=== PATIENT | female | born 1950 | race Caucasian/White ===

== ENCOUNTER 2022-05-01 21:29 | Emergency (ER) | payer MEDICARE ==
[~2022-05-01] VITALS: Ht 154.9 cm; Wt 84.0 kg
[2022-05-01] MEDS ORDERED: acetaminophen 325mg tablet PO ONE (22:10)
[2022-05-01] MEDS ORDERED: AMLO2.5T4 PO (22:16)
[2022-05-01] MEDS ORDERED: METO-395 PO (22:16)
[2022-05-01] MEDS ORDERED: GLIM1TAB PO (22:16)
== END 2022-05-02 00:05 | disposition home or self-care (01) ==
LOC: ER 21:29
DX: M25.562 Pain in left knee (principal); M25.552 Pain in left hip; I10 Essential (primary) hypertension; R51.9 Headache, unspecified; Z79.899 Other long term (current) drug therapy; W19.XXXA Unspecified fall, initial encounter; Y93.89 Activity, other specified; Y92.89 Other specified places as the place of occurrence of the external cause; Y99.8 Other external cause status
CPT/HCPCS: 70450; 72125; 72192; 73502; 73564; 99284

== ENCOUNTER 2022-11-05 16:31 | Inpatient (IN) | payer MEDICARE, OTHER ==
[~2022-11-05] VITALS: Ht 154.9 cm; Wt 81.0 kg
[2022-11-05 17:35] LABS: BASOPHILS # (AUTO) 0.1 X10'3 (0-0.2); BASOPHILS % (AUTO) 0.4 % (0-1); EOSINOPHILS # (AUTO) 0.1 X10'3 (0-0.9); EOSINOPHILS % (AUTO) 0.4 % (0-6); HEMATOCRIT 45.1 % (35.0-45.0); HEMOGLOBIN 15.1 g/dl (12.0-16.0); LYMPHOCYTES % (AUTO) 12.1 % (21-51); MEAN CORPUSCULAR HEMOGLOBIN 30.9 PG (27.0-31.0); MEAN CORPUSCULAR HGB CONC 33.4 g/dL (33.0-36.5); MEAN CORPUSCULAR VOLUME 92.7 FL (78-98); MEAN PLATELET VOLUME 8.7 FL (7.4-10.4); MONOCYTES # (AUTO) 1.3 X10'3 (0-0.9); MONOCYTES % (AUTO) 7.8 % (2-12); NEUTROPHILS # (AUTO) 13.4 X10'3 (1.8-7.7); NEUTROPHILS % (AUTO) 79.3 % (42-75); PLATELET COUNT 291 X10'3 (140-440); RED BLOOD COUNT 4.87 X10'6 (4.20-5.60); RED CELL DISTRIBUTION WIDTH 13.7 % (11.5-14.5); WHITE BLOOD COUNT 16.9 X10'3 (4.5-11.0)
[2022-11-05 17:43] LABS: CLARITY,URINE CLEAR (Clear); COLOR,URINE YELLOW (Yellow); GLUCOSE, URINE NEGATIVE (Neg); KETONES,URINE NEGATIVE (Neg); LEUKOCYTE ESTERASE ,URINE SMALL (Neg); NITRITES, URINE NEGATIVE (Neg); OCCULT BLOOD,URINE SMALL (Neg); PROTEIN,URINE NEGATIVE (Neg); UROBILINOGEN,URINE 0.2 E.U/dL (0.2-1.0)
[2022-11-05 17:47] LABS: UA COLLECTION TYPE NON-SPECIFIED
[2022-11-05 17:50] LABS: ALANINE AMINOTRANSFERASE 28 U/L (12-78); ALBUMIN 4.1 G/DL (3.4-5.0); ALBUMIN/GLOBULIN RATIO 1.1 (1.1-1.5); ALKALINE PHOSPHATASE 84 IU/L (46-116); ANION GAP 10 (8-16); ASPARTATE AMINO TRANSFERASE 17 U/L (10-37); BILIRUBIN,TOTAL 0.6 MG/DL (0.1-1.0); BLOOD UREA NITROGEN 9 MG/DL (7-18); BUN/CREATININE RATIO 10.5 (10.0-20.0); CHLORIDE 102 MMOL/L (99-107); CREATININE 0.86 MG/DL (0.40-0.90); GLUCOSE 135 MG/DL (70-104); LIPASE 67 U/L (73-393); POTASSIUM 3.9 MMOL/L (3.5-5.1); SODIUM 137 MMOL/L (135-145); TOTAL CARBON DIOXIDE 24.7 MMOL/L (24-32); TOTAL PROTEIN 7.7 G/DL (6.4-8.2); eGFR 65 ML/MIN
[2022-11-05 18:17] LABS: MUCUS STRANDS FEW /LPF (Neg); SQUAMOUS EPITHELIAL CELL,UR MANY /LPF (FEW)
[2022-11-05 18:18] LABS: BACTERIA,URINE NONE SEEN /HPF (Neg); RBC,URINE 0-2 /HPF (0-2); TRANSITIONAL EPI CELLS,URINE FEW /HPF
[2022-11-05] MEDS ORDERED: morphine 4 MG/ML inj SYRINge IV ONE (18:25)
[2022-11-05] MEDS ORDERED: ondansetron/PF 4mg/2ml inj IV ONE (18:25)
[2022-11-05] MEDS ORDERED: normal saline 1000ml 1,000 ML IV ONE (18:25)
[2022-11-05] MEDS ORDERED: metroNIDAZOLE-Flagyl 500mg/NS 100 ML IV ONE (20:00)
[2022-11-05] MEDS ORDERED: CefTRIAXone/D5W-Rocephin 1gm 50 ML IV ONE (20:00)
[2022-11-05] MEDS ORDERED: temazepam 15mg capsule PO PRN (21:00)
[2022-11-05] MEDS ORDERED: HYDROmorphone inj. 0.5 MG/0.5 ML DISP.SYRIN IV ONE (21:55)
[2022-11-05] MEDS ORDERED: ondansetron/PF 4mg/2ml inj IV PRN (22:05)
[2022-11-05] MEDS ORDERED: diphenhydrAMINE 25mg capsule PO PRN (22:05)
[2022-11-05] MEDS ORDERED: HYDROmorphone inj. 0.5 MG/0.5 ML DISP.SYRIN IV PRN (22:05)
[2022-11-05] MEDS ORDERED: bisacodyl 10mg suppository rectal RC PRN (22:05)
[2022-11-05] MEDS ORDERED: acetaminophen 325mg tablet PO PRN ×2 (22:05)
[2022-11-05] MEDS ORDERED: magnesium hydroxide 30ml (MOM) UD suspension PO PRN (22:05)
[2022-11-05] MEDS ORDERED: morphine 2 MG/ML inj. syringe IV PRN (22:05)
[2022-11-05] MEDS ORDERED: HYDROcodone/acetaminophen 10/325mg tab PO PRN (22:05)
[2022-11-05] MEDS ORDERED: mag hydrox/Alum hydrox/simeth 30ml oral suspension PO PRN (22:05)
[2022-11-05] MEDS ORDERED: ondansetron 4mg rapidly disintigrating tab PO PRN (22:05)
[2022-11-05] MEDS ORDERED: diphenhydrAMINE 50 mg/ml inj IV PRN (22:05)
[2022-11-05] MEDS ORDERED: hydrALAZINE 20mg/ml inj. IV PRN (22:10)
[2022-11-05 22:35] LABS: PHOSPHORUS 4.1 MG/DL (2.3-4.5)
[2022-11-05 22:41] LABS: HEMOGLOBIN A1C 5.8 % (4.5-6.2)
[2022-11-05 22:53] LABS: APTT 26 SECONDS (22-32)
[2022-11-06] VITALS (31 sets, daily range): BP systolic 139–196; BP diastolic 70–92
[2022-11-06] MEDS: sodium chloride 0.45% 1,000 ML IV SCH ×4 (02:04→21:02)
[2022-11-06] MEDS: piperacillin/tazo 4.5gm/100ml 100 ML IV SCH ×3 (02:46→16:36)
[2022-11-06] MEDS: morphine 2 MG/ML inj. syringe IV PRN (02:51)
[2022-11-06 06:23] LABS: BASOPHILS % (AUTO) 0.4 % (0-1); EOSINOPHILS % (AUTO) 0.1 % (0-6); HEMATOCRIT 40.9 % (35.0-45.0); HEMOGLOBIN 13.8 g/dl (12.0-16.0); LYMPHOCYTES # (AUTO) 2.2 X10'3 (1.1-4.8); MEAN CORPUSCULAR HEMOGLOBIN 31.2 PG (27.0-31.0); MEAN CORPUSCULAR HGB CONC 33.7 g/dL (33.0-36.5); MEAN CORPUSCULAR VOLUME 92.6 FL (78-98); MEAN PLATELET VOLUME 8.7 FL (7.4-10.4); MONOCYTES # (AUTO) 1.2 X10'3 (0-0.9); MONOCYTES % (AUTO) 9.4 % (2-12); NEUTROPHILS # (AUTO) 9.3 X10'3 (1.8-7.7); NEUTROPHILS % (AUTO) 73.1 % (42-75); PLATELET COUNT 213 X10'3 (140-440); RED BLOOD COUNT 4.41 X10'6 (4.20-5.60); RED CELL DISTRIBUTION WIDTH 13.5 % (11.5-14.5); WHITE BLOOD COUNT 12.7 X10'3 (4.5-11.0)
[2022-11-06 06:28] LABS: ALANINE AMINOTRANSFERASE 80 U/L (12-78); ALBUMIN 3.5 G/DL (3.4-5.0); ALBUMIN/GLOBULIN RATIO 1.1 (1.1-1.5); ALKALINE PHOSPHATASE 103 IU/L (46-116); ANION GAP 8 (8-16); ASPARTATE AMINO TRANSFERASE 85 U/L (10-37); BILIRUBIN,TOTAL 0.8 MG/DL (0.1-1.0); BLOOD UREA NITROGEN 10 MG/DL (7-18); BUN/CREATININE RATIO 11.9 (10.0-20.0); CALCIUM 8.7 MG/DL (8.5-10.1); CHLORIDE 104 MMOL/L (99-107); CHOL/HDL RATIO 2.2 (0.00-4.99); CHOLESTEROL 189 MG/DL (0-200); CREATININE 0.84 MG/DL (0.40-0.90); GLUCOSE 124 MG/DL (70-104); HDL CHOLESTEROL 87 MG/DL (35-60); LDL CHOLESTEROL 94 MG/DL (50-100); POTASSIUM 3.9 MMOL/L (3.5-5.1); SODIUM 139 MMOL/L (135-145); TOTAL CARBON DIOXIDE 27.1 MMOL/L (24-32); TOTAL PROTEIN 6.7 G/DL (6.4-8.2); TRIGLYCERIDES 32 MG/DL (20-135); eGFR 67 ML/MIN
--- NOTE | 2022-11-06 06:46 | NUR ---
Problems reprioritized. Patient report given, questions answered & plan of care reviewed with LISA ALBERT.
[2022-11-06] MEDS ORDERED: BUPIVAcaine/PF 2.5 mg/ml (0.25%) 30ml vial ONE (07:13)
[2022-11-06] MEDS: docusate sod 100mg capsule PO SCH ×2 (08:00→21:01)
[2022-11-06] MEDS: pantoprazole 40mg IV 80 MG in normal saline 100ml IV soln 100 ML IV SCH (08:28)
[2022-11-06] MEDS ORDERED: METO100T14 PO (09:37)
[2022-11-06] MEDS ORDERED: ENAL-79 PO (09:37)
[2022-11-06] MEDS ORDERED: AMLO5TAB16 PO (09:37)
[2022-11-06] MEDS ORDERED: ondansetron/PF 4mg/2ml inj IV PRN (10:10)
[2022-11-06] MEDS ORDERED: meperidine/PF 25mg/ml syringe IV PRN ×2 (10:10)
[2022-11-06] MEDS ORDERED: ringers solution, lacted 1,000 ML IV SCH (10:10)
[2022-11-06] MEDS ORDERED: morphine 4 MG/ML inj SYRINge IV PRN (10:10)
[2022-11-06] MEDS ORDERED: proCHLORperazine 10 MG/2 ml inj IV PRN (10:10)
[2022-11-06] MEDS ORDERED: morphine 2 MG/ML inj. syringe IV PRN (10:10)
[2022-11-06] MEDS ORDERED: rocuronium 10mg/ml inj IV ONE (10:13)
[2022-11-06] MEDS ORDERED: fentaNYL/PF 50MCG/1 ML 2ML syringe ONE (10:13)
[2022-11-06] MEDS ORDERED: propofol inj 20 ML IV ONE (10:13)
[2022-11-06] MEDS ORDERED: midazolam 1 mg/ML 2ml injection ONE (10:13)
[2022-11-06] MEDS ORDERED: BUPIVAcaine 0.5% inj/PF 30 ml vial IJ ONE (10:47)
[2022-11-06] MEDS ORDERED: ondansetron/PF 4mg/2ml inj ONE (11:00)
[2022-11-06] MEDS ORDERED: dexamethasone sod phosphate 4mg/ml inj. ONE (11:00)
[2022-11-06] MEDS ORDERED: sugammadex 200mg/2ml injection IV ONE (11:01)
--- NOTE | 2022-11-06 11:15 | NUR ---
Received from OR via , accompanied by Anesthesiologist DR CADENA and report given by Anesthesiolgist. PT OPENS EYES TO VOICE, SKIN WARM AND PINK, PIV RIGHT WRIST 20G WITH LR 100. 4 LAP SITES WITH DERMABOND CD, NO C/O PAIN, SCD'S.
[2022-11-06] MEDS: meperidine/PF 25mg/ml syringe IV PRN ×2 (11:55→12:36)
--- NOTE | 2022-11-06 11:58 | NUR ---
PT IS EXPERIENCING HIGH BP WITH MODERATE PAIN. ATTEMPTING MEPERIDINE TO CONTROL PAIN AND REDUCE BP. WILL REASSES OUTCOME.
--- NOTE | 2022-11-06 12:53 | NUR ---
Report called to receiving nurse. Transferred via [facility] . Special Issues communicated to receiving nurse LISA ALBERT. PT IS AWAKE, ALERT, MOVES EXT X 4, PAIN TOLERABLE, BP LOWER AND OKAYED FOR TRANSFER BY DR BELLAMY, SCD'S, IV PATENT, LAP SITES CD, PT MEETS DISCHARGE CRITERA.
--- NOTE | 2022-11-06 13:15 | NUR ---
TRANSPORTED PT BACK TO [facility]. CARE TRANSFERRED TO LISA ALBERT.
--- NOTE | 2022-11-06 15:09 | NUR ---
PAGER ID: [phone] MESSAGE: Gunjan Martinez#[id number]'s BP 175/77 HR 50, RR17.Would you Like to do hydralazine OR just a 1x dose of her Enalapril 20mg and amlodipine 5mg po.since that is what she missed this am.Please advise. Thank you. Carly Perkisn [phone]
[2022-11-06] MEDS: HYDROcodone/acetaminophen 5mg/325mg tablet PO PRN (16:35)
--- NOTE | 2022-11-06 19:12 | NUR ---
Problems reprioritized. Patient report given, questions answered & plan of care reviewed with Prudence RN.
--- NOTE | 2022-11-06 19:22 | NUR ---
Patient in room [facility]. I have received report from LISA ALBERT and had the opportunity to ask questions and assume patient care.
[2022-11-06] MEDS: lisinopril 20mg tablet PO SCH (21:01)
[2022-11-07] MEDS: morphine 2 MG/ML inj. syringe IV PRN (00:24)
[2022-11-07] MEDS: piperacillin/tazo 4.5gm/100ml 100 ML IV SCH ×2 (00:24→07:30)
[2022-11-07 02:00] VITALS: BP 134/68
[2022-11-07 06:00] VITALS: BP 160/73
--- NOTE | 2022-11-07 06:23 | NUR ---
Problems reprioritized. Patient report given, questions answered & plan of care reviewed with PANCHITO ALBERT.
--- NOTE | 2022-11-07 06:50 | NUR ---
Problems reprioritized. Patient report given, questions answered & plan of care reviewed with Prudence RN
[2022-11-07 07:07] LABS: BASOPHILS % (AUTO) 0.1 % (0-1); EOSINOPHILS % (AUTO) 0 % (0-6); HEMATOCRIT 37.9 % (35.0-45.0); HEMOGLOBIN 12.8 g/dl (12.0-16.0); LYMPHOCYTES # (AUTO) 1.3 X10'3 (1.1-4.8); LYMPHOCYTES % (AUTO) 9.9 % (21-51); MEAN CORPUSCULAR HEMOGLOBIN 31.2 PG (27.0-31.0); MEAN CORPUSCULAR HGB CONC 33.7 g/dL (33.0-36.5); MEAN CORPUSCULAR VOLUME 92.7 FL (78-98); MEAN PLATELET VOLUME 8.9 FL (7.4-10.4); MONOCYTES # (AUTO) 1.4 X10'3 (0-0.9); MONOCYTES % (AUTO) 10.4 % (2-12); NEUTROPHILS # (AUTO) 10.7 X10'3 (1.8-7.7); NEUTROPHILS % (AUTO) 79.6 % (42-75); PLATELET COUNT 205 X10'3 (140-440); RED BLOOD COUNT 4.09 X10'6 (4.20-5.60); RED CELL DISTRIBUTION WIDTH 13.9 % (11.5-14.5); WHITE BLOOD COUNT 13.5 X10'3 (4.5-11.0)
[2022-11-07 07:10] LABS: ALANINE AMINOTRANSFERASE 110 U/L (12-78); ALBUMIN 3.1 G/DL (3.4-5.0); ALKALINE PHOSPHATASE 89 IU/L (46-116); ANION GAP 9 (8-16); ASPARTATE AMINO TRANSFERASE 75 U/L (10-37); BILIRUBIN,TOTAL 0.5 MG/DL (0.1-1.0); BLOOD UREA NITROGEN 10 MG/DL (7-18); BUN/CREATININE RATIO 9.1 (10.0-20.0); CALCIUM 8.7 MG/DL (8.5-10.1); CHLORIDE 105 MMOL/L (99-107); GLUCOSE 135 MG/DL (70-104); POTASSIUM 3.8 MMOL/L (3.5-5.1); SODIUM 140 MMOL/L (135-145); TOTAL CARBON DIOXIDE 26.5 MMOL/L (24-32); TOTAL PROTEIN 6.2 G/DL (6.4-8.2); eGFR 49 ML/MIN
[2022-11-07] MEDS: docusate sod 100mg capsule PO SCH (07:28)
[2022-11-07] MEDS: lisinopril 20mg tablet PO SCH (07:30)
[2022-11-07] MEDS: pantoprazole 40mg IV 80 MG in normal saline 100ml IV soln 100 ML IV SCH (07:30)
[2022-11-07 07:43] VITALS: BP_SYST 180
[2022-11-07] MEDS ORDERED: amLODIPine 5mg tablet PO SCH (08:00)
[2022-11-07] MEDS ORDERED: metoprolol tartrate 50mg tablet PO SCH (08:00)
[2022-11-07] MEDS ORDERED: HYDR-3965 PO (10:21)
[2022-11-07] MEDS ORDERED: AMOX-580 PO (10:21)
[2022-11-07] MEDS: HYDROcodone/acetaminophen 5mg/325mg tablet PO PRN (12:10)
--- NOTE | 2022-11-07 14:06 | NUR ---
Patient given d/c instructions at bedside and significant other present. RN went over follow up instructions, verified pharmacy, sign and symptoms of infection and answered any questions patient had at the time. Patient wheeled out in wheelchair for private vehicle.
== END 2022-11-07 13:46 | disposition home or self-care (01) | DRG 418 ==
LOC: ER 16:31 → ED HOLD 22:06 → UNDOADMIN 22:06 → ED HOLD 11-06 01:50 → SUR 3N 11-06 01:50 → PACU 11-06 12:00 → SUR 3N 11-06 12:00 → PACU 11-06 13:12 → SUR 3N 11-06 13:12 → UNDODISIN 11-07 13:46
PROVIDERS: ADMIT Family Medicine; ATTEND Internal Medicine
PROC: 0FT44ZZ Resection of Gallbladder, Percutaneous Endoscopic Approach (ICD-10-PCS; principal; 2022-11-06 10:14)
DX: K80.00 Calculus of gallbladder with acute cholecystitis without obstruction (principal); N17.9 Acute kidney failure, unspecified; G47.30 Sleep apnea, unspecified; I12.9 Hypertensive chronic kidney disease with stage 1 through stage 4 chronic kidney disease, or unspecified chronic kidney disease; K76.0 Fatty (change of) liver, not elsewhere classified; K82.8 Other specified diseases of gallbladder; N18.9 Chronic kidney disease, unspecified; K57.90 Diverticulosis of intestine, part unspecified, without perforation or abscess without bleeding; Z79.899 Other long term (current) drug therapy
CPT/HCPCS: 36415; 71045; 74176; 80053; 80061; 81001; 82948; 83036; 83690; 83735; 83880; 84100; 84443; 84484; 85025; 85610; 85730; 87081; 96361; 96365; 96368; 96375; 99285; A4215; A4615; A4618; A7000; C9113; G0378; J0696; J1100; J1170; J2175; J2250; J2270; J2405; J2543; J2704; J3010; J3490; J7030; J7120; S0020

== ENCOUNTER 2022-11-15 18:16 | Emergency (ER) | payer MEDICARE, OTHER ==
[~2022-11-15] VITALS: Ht 154.9 cm; Wt 86.2 kg
[~2022-11-15 18:16] MED LIST: AMLO5TAB16 PO; AMOX-580 PO; ENAL-79 PO; HYDR-3965 PO; METO100T14 PO
[2022-11-15 18:34] VITALS: BP 218/93
[2022-11-15] MEDS ORDERED: HYDR-3973 PO (21:34)
== END 2022-11-15 21:39 | disposition home or self-care (01) ==
LOC: ER 18:17
DX: M54.9 Dorsalgia, unspecified (principal); I10 Essential (primary) hypertension; Z90.49 Acquired absence of other specified parts of digestive tract; Z79.899 Other long term (current) drug therapy; Z79.1 Long term (current) use of non-steroidal anti-inflammatories (NSAID); Z79.2 Long term (current) use of antibiotics
CPT/HCPCS: 71045; 72070; 99284

== ENCOUNTER 2023-06-01 21:17 | Emergency (ER) | payer MEDICARE, OTHER ==
[~2023-06-01] VITALS: Ht 157.5 cm; Wt 75.0 kg
[~2023-06-01 21:17] MED LIST changes: -AMOX-580 PO; -HYDR-3965 PO
[2023-06-01 21:43] VITALS: BP 157/66; PULSE 54; RESP 18; TEMP 99.1; O2SAT 95
[2023-06-01] MEDS ORDERED: NIRM1TAB PO (22:20)
== END 2023-06-01 22:42 | disposition home or self-care (01) ==
LOC: ER 21:18
DX: U07.1 COVID-19 (principal); I10 Essential (primary) hypertension; Z79.899 Other long term (current) drug therapy
CPT/HCPCS: 99283

== ENCOUNTER 2024-05-28 12:45 | Emergency (ER) | payer MEDICARE, OTHER ==
[~2024-05-28] VITALS: Ht 154.9 cm; Wt 86.4 kg
[~2024-05-28 12:45] MED LIST changes: +NIRM1TAB PO
[2024-05-28 13:14] LABS: BASOPHILS # (AUTO) 0.1 X10'3 (0-0.2); BASOPHILS % (AUTO) 0.9 % (0-1); EOSINOPHILS # (AUTO) 0.3 X10'3 (0-0.9); EOSINOPHILS % (AUTO) 3.8 % (0-6); HEMATOCRIT 43.4 % (35.0-45.0); HEMOGLOBIN 14.5 g/dl (12.0-16.0); LYMPHOCYTES # (AUTO) 2.6 X10'3 (1.1-4.8); LYMPHOCYTES % (AUTO) 29.9 % (21-51); MEAN CORPUSCULAR HEMOGLOBIN 31.2 PG (27.0-31.0); MEAN CORPUSCULAR HGB CONC 33.5 g/dL (33.0-36.5); MEAN CORPUSCULAR VOLUME 93.3 FL (78-98); MEAN PLATELET VOLUME 8.2 FL (7.4-10.4); MONOCYTES # (AUTO) 0.8 X10'3 (0-0.9); MONOCYTES % (AUTO) 9.5 % (2-12); NEUTROPHILS # (AUTO) 4.9 X10'3 (1.8-7.7); NEUTROPHILS % (AUTO) 55.9 % (42-75); PLATELET COUNT 214 X10'3 (140-440); RED BLOOD COUNT 4.65 X10'6 (4.20-5.60); RED CELL DISTRIBUTION WIDTH 13.8 % (11.5-14.5); WHITE BLOOD COUNT 8.8 X10'3 (4.5-11.0)
[2024-05-28 13:27] LABS: ALBUMIN 3.7 G/DL (3.4-5.0); ANION GAP 9 (8-16); BLOOD UREA NITROGEN 18 MG/DL (7-18); BUN/CREATININE RATIO 16.1 (10.0-20.0); CALCIUM 9.2 MG/DL (8.5-10.1); CHLORIDE 106 MMOL/L (99-107); CREATININE 1.12 MG/DL (0.40-0.90); GLUCOSE 107 MG/DL (70-104); POTASSIUM 4.1 MMOL/L (3.5-5.1); SODIUM 141 MMOL/L (135-145); TOTAL CARBON DIOXIDE 25.9 MMOL/L (24-32); eCRCL 34 ML/MIN; eGFR 48 ML/MIN
[2024-05-28 13:32] VITALS: TEMP 98.2
[2024-05-28 13:33] LABS: APTT 25 SECONDS (22-32); PROTHROMBIN TIME 10.3 SECONDS (9.0-12.0)
[2024-05-28] MEDS: amLODIPine 5mg tablet PO ONE (17:38)
[2024-05-28] MEDS: aspirin 325mg tablet PO ONE (17:38)
[2024-05-28 18:02] VITALS: BP 166/74; PULSE 42; RESP 18; O2SAT 97
== END 2024-05-28 18:06 | disposition home or self-care (01) ==
LOC: ER 12:45
DX: I10 Essential (primary) hypertension (principal); R53.1 Weakness; R41.0 Disorientation, unspecified; R79.1 Abnormal coagulation profile; Z90.49 Acquired absence of other specified parts of digestive tract
CPT/HCPCS: 36415; 70450; 71045; 80048; 82948; 85025; 85610; 85730; 93005; 99285

== ENCOUNTER 2024-11-15 08:09 | Emergency (ER) | payer MEDICARE, OTHER ==
[~2024-11-15] VITALS: Ht 154.9 cm; Wt 77.7 kg
[2024-11-15 08:10] VITALS: BP 166/66; PULSE 46; RESP 15; O2SAT 97
[2024-11-15 10:35] VITALS: TEMP 97.6
== END 2024-11-15 10:37 | disposition home or self-care (01) ==
LOC: ER 08:09
DX: M25.551 Pain in right hip (principal); I10 Essential (primary) hypertension; Z90.49 Acquired absence of other specified parts of digestive tract; Z79.899 Other long term (current) drug therapy
CPT/HCPCS: 73502; 99283